=== PATIENT | female | born 1995 | race Two or more races ===

== ENCOUNTER 2025-07-12 09:33 | Emergency (ER) | payer OTHER ==
[~2025-07-12] VITALS: Ht 167.6 cm; Wt 75.0 kg
[2025-07-12 09:55] VITALS: BP 107/76; PULSE 72; RESP 18; TEMP 98.4; O2SAT 100
--- NOTE | 2025-07-12 10:04 | ED.PDOC ---
Back pain HPI HPI Comments A 30 YEAR OLD FE/MALE PRESENTS TO THE ED WITH COMPLAINT OF LOWER BACK PAIN, CONSTIPATION, AND UTI SYMPTOMS. PATIENT STATES SHE HAS BEEN EXPERIENCING LOWER BACK PAIN THAT RADIATES TO HER SUPRAPUBIC REGION AND DOWN HER BILATERAL LEGS FOR THE PAST 2 DAYS. PATIENT REPORTS SHE HAS ALSO BEEN EXPERIENCING CONSTIPATION, URINARY URGENCY, AND URINARY FREQUENCY FOR THE PAST 2 DAYS. PATIENT DENIES SADDLE ANESTHESIA, URINARY INCONTINENCE, BOWEL INCONTINENCE, DYSURIA, HEMATURIA, FLANK PAIN, FEVER, CHILLS, SHORTNESS OF BREATH, CHEST PAIN, ABDOMINAL PAIN, NAUSEA, VOMITING, HEADACHE, OR OTHER COMPLAINTS. NO OTHER SYMPTOMS OR MODIFYING FACTORS AT THIS TIME. PATIENT IS ALERT, ORIENTED X 4, AND HAS STEADY GAIT. Chief Complaint: Back Pain Time Seen by MD: 09:41 Reviewed Notes: Nurses Notes, Medications, Allergies Allergies: Coded Allergies: NO KNOWN ALLERGIES (Unverified , 07/12/25) Home Meds Active Scripts Ibuprofen (Ibuprofen) 800 Mg Tab, 1 TAB PO TID, #30 TAB Prov:KAITLIN AGEE 07/12/25 Lactulose (Lactulose) 10 Gm/15 Ml Ginger, 30 ML PO TID, #300 ML Prov:KAITLIN AGEE 07/12/25 Information Source: Patient Mode of Arrival: Ambulatory Timing: Days Duration: Since onset, Days Location of Back pain: (B) Lumbar Radiates to: Anterior: (B) Buttocks, (B) Calf, (B) Thigh Radiates to: Posterior: (B) Buttocks, (B) Calf, (B) Thigh Radiates to: Medial: (B) Buttocks, (B) Calf, (B) Thigh Radiates to: Lateral: (B) Buttocks, (B) Calf, (B) Thigh Severity: Moderate Prehospital treatment: None Quality: Aching, Cramping Onset: Spontaneous History of: None Modifying Factors: Movement Associated signs and symptoms: None Past Medical History PAST MEDICAL HISTORY: Denies Surgical History: Denies all surgeries REWRITER History: Endometriosis Family History Family History: Reviewed,noncontributory to illness Social History Smoker: Non-Smoker Alcohol: Denies ETOH Use Drugs: Denies Drug Use Lives In: Home Constitutional: denies: chills, diaphoresis, fatigue, fever, malaise, sweats, weakness, others EENTM: denies: blurred vision, double vision, ear bleeding, ear discharge, ear drainage, ear pain, ear ringing, eye pain, eye redness, hearing loss, mouth pain, mouth swelling, nasal discharge, nose bleeding, nose congestion, nose pain, photophobia, tearing, throat pain, throat swelling, voice changes, others Respiratory: denies: cough, hemoptysis, orthopnea, SOB at rest, shortness of breath, SOB with excertion, stridor, wheezing, others Cardiovascular: denies: chest pain, dizzy spells, diaphoresis, Dyspnea on exertion, edema, irregular heart beat, left arm pain, lightheadedness, palpitations, PND, syncope, others Gastrointestinal: reports: constipated; denies: abdomen distended, abdominal pain, blood streaked bowels, diarrhea, dysphagia, difficulty swallowing, hematemesis, melena, nausea, poor appetite, poor fluid intake, rectal bleeding, rectal pain, vomiting, others Genitourinary: reports: frequency, pain (SUPRAPUBIC PAIN), urgency; denies: abnormal vagina bleeding, burning, dyspareunia, dysuria, flank pain, hematuria, incontinence, , vagina discharge, others Neurological: denies: dizziness, fainting, headache, left sided numbness, left sided weakness, numbness, paresthesia, pre-existing deficit, right sided numbness, right sided weakness, seizure, speech problems, tingling, tremors, weakness, others Musculoskeletal: reports: back pain, muscle pain; denies: gout, joint pain, joint swelling, muscle stiffness, neck pain, others Integumetry: denies: bruises, change in color, change in hair/nails, dryness, laceration, lesions, lumps, rash, wounds, others Allergic/Immunocompromised: denies: Difficulty Healing, Frequent Infections, Hives, Itching, others Hematologic/Lymphatic: denies: anemia, blood clots, easy bleeding, easy bruisi ng, swollen glands, others Endocrine: denies: excessive hunger, excessive sweating, excessive thirst, exce ssive urination, flushing, intolerance to cold, intolerance to heat, unexplained weight gain, unexplained weight loss, others Psychiatric: denies: anxiety, bipolar disorder, depression, hopeless, panic disorder, schizophrenia, sleepless, suicidal, others All Other Systems: Reviewed and Negative Physical Exam General Appearance: No Apparent Distress, Normal HEENT: Normal ENT Inspection, PERRL/EOMI, Pharynx Normal, TMs Normal Neck: Full Range of Motion, Non-Tender, Normal, Normal Inspection Respiratory: Chest Non-Tender, Lungs Clear, No Accessory Muscle Use, No Respiratory Distress, Normal Breath Sounds Cardiovascular: No Edema, No JVD, No Murmur, No Gallop, Normal Peripheral Pulses, Regular Rate/Rhythm Breast Exam: Deferred Gastrointestinal: No Organomegaly, Non Tender, No Pulsatile Mass, Normal Bowel Sounds, Soft Genitalia: Deferred Pelvic: Deferred Rectal: Deferred Extremities: No calf tenderness, Normal capillary refill, Normal inspection, Normal range of motion, Non-tender, No pedal edema Musculoskeletal : Location: Bilateral Extremity Location: Back Apperance: Tenderness (AND MUSCLE SPASM ON LOWER BACK, NO BONY TENDERNESS, SWELLING AND DEFORMITY. NO CVA TENDERNESS. 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 Was a procedure done?: No Back Pain Differential Dx Differential Diagnosis: DJD, Musculoskeletal Pain, Strain Other Differential Diagnosis UTI, ACUTE CYSTITIS X-Ray, Labs, Meds, VS Vital Signs Date Time Temp Pulse Resp B/P (MAP) Pulse Ox O2 Delivery O2 Flow Rate FiO2 07/12/25 09:55 98.4 72 18 107/76 (86) 100 98.4 07/12/25 09:55 72 18 100 Room Air 07/12/25 09:35 98.4 72 18 107/76 100 98.4 Lab Test 07/12/25 09:55 Range/Units Urine Color Light-red Yellow Urine Clarity Turbid H Clear Urine pH 6.0 5.0-9.0 Urine Specific [place] 1.014 1.001-1.035 Urine Protein Trace H Negative Urine Ketones Trace Negative Urine Blood 3+ H Negative /uL Urine Nitrite Negative Negative Urine Bilirubin Negative Negative Urine Urobilinogen Normal Negative mg/dL Urine Leukocyte Esterase 1+ Negative /uL Urine RBC 6429 0 - 4 /hpf Urine Microscopic WBC 96 H 0-5 /HPF Urine Squamous Epithelial Cells Few <5 /hpf Urine Bacteria None seen None Seen /hpf Urine Glucose Normal Normal mg/dL Current Medications Medications (Trade) Dose Ordered Sig/Cristiane Route Start Time Stop Time Status Last Admin Ketorolac Tromethamine (Toradol Injection) 60 mg ONCE ONCE IM 07/12/25 10:30 07/12/25 10:31 DC 07/12/25 10:31 ORDERING PHYSICIAN: KAITLIN AGEE PROCEDURE(s): KUB - KUB ABDOMEN SINGLE VIEW REASON: LOW BACK PAIN, DIFFICULTY URINATION ORDER NUMBER(s): [id number], ACCESSION NUMBER(s): [id number] EXAM: XY KUB ABDOMEN SINGLE VIEW INDICATION: LOW BACK PAIN, DIFFICULTY URINATION COMPARISON: None TECHNIQUE: 2 radiographic views of the abdomen. FINDINGS: Nonobstructive bowel gas pattern noted. Moderate volume colonic stool. Post cholecystectomy. There is no definite evidence for pneumoperitoneum. No abnormal calcifications noted. IMPRESSION: Nonobstructive bowel gas pattern noted. ATED BY: BRENT KAYE MD DICTATED DATE/TIME: 07/12/25 103 SIGNED BY: BRENT KAYE MD SIGNED DATE/TIME: 07/12/25 103 CC: X-Ray, Labs, Meds, VS Comment EXTERNAL MEDICAL RECORDS REVIEWED: [NONE] INDEPENDENT HISTORIANS: [NONE] SOCIAL DETERMINANTS OF HEALTH: [NONE] LABS ORDERED: UA REVIEWED AND INTERPRETED RESULTS: BLOOD 3+, LEUKOCYTES 1+ IMAGING ORDERED: XR ABDOMEN (KUB) TREATMENTS ORDERED: TORADOL 60 MG IM PROCEDURES PERFORMED: NONE CRITICAL CARE TIME: NONE I HAVE DISCUSSED THE PATIENT WITH THE ATTENDING PHYSICIAN DR. LYLE AND HE AGREES WITH THE PATIENT'S PLAN OF CARE AND DISPOSITION. BASED ON HISTORY OF PRESENT ILLNESS, AND PHYSICAL EXAM, PATIENT WILL BE DISCHARGED HOME. DISCUSSED PLAN FOR DISCHARGE HOME WITH RX [IBUPROFEN 800 MG AND LACTULOSE]. MEDICATION WARNINGS GIVEN. SHARED DECISION MAKING: DISCUSSED WITH PATIENT THAT THEIR WORKUP WAS NORMAL. PATIENT INSTRUCTED TO FOLLOW UP WITH PRIMARY CARE PROVIDER IN 1-2 DAYS FOR RE- EVALUATION OF SYMPTOMS. PATIENT VERBALIZES UNDERSTANDING TO RETURN TO ED FOR NEW OR WORSENING SYMPTOMS OR IF FOLLOW UP WITH PCP CANNOT BE OBTAINED. PATIENT FEELS COMFORTABLE GOING HOME AT THIS TIME. ALL QUESTIONS ADDRESSED AT TIME OF DISCHARGE. Images Reviewed?: Images reviewed and evaluated by me Time of 1ST Reevaluation: 11:01 Reevaluation 1ST: Improved Patient Education/Counseling: Diagnosis, Treatment, Need For Follow Up Family Education/Counseling: Diagnosis, Treatment, Need For Follow Up Medical Screening: No EMC Exist At This Time SEPSIS Sepsis Screen Date sepsis recognized/suspect: Jul 12, 2025 Time Sepsis recognized/suspect: 09 Recent Procedure: No On Antibiotic Therapy: No Respiratory Rate >20: No Heart Rate >90: No Temp<36 C (96.8 F) or >38.3 C: No SBP <90 or MAP <65 mmHG: No New Acute Mental Status Change: No Is the patient on CPAP, BIPAP,: No Physician Orders Kub Abdomen Single View (07/12/25 09:55) Vital Signs Date Time Temp Pulse Resp B/P (MAP) Pulse Ox O2 Delivery O2 Flow Rate FiO2 07/12/25 09:55 98.4 72 18 107/76 (86) 100 98.4 07/12/25 09:55 72 18 100 Room Air 07/12/25 09:35 98.4 72 18 107/76 100 98.4 Medications Medications Dose Ordered Sig/Cristiane Route Start Time Stop Time Status Last Admin Dose Admin Ketorolac Tromethamine 60 mg ONCE ONCE IM 07/12/25 10:30 07/12/25 10:31 DC 07/12/25 10:31 Departure 1 Departure Time of Disposition: 11:01 Impression: Primary Impression: Acute constipation Additional Impressions: Low back strain Qualified Codes: S39.012A - Strain of muscle, fascia and tendon of lower back, initial encounter UTI (urinary tract infection) Qualified Codes: N30.00 - Acute cystitis without hematuria Disposition: 01 HOME / SELF CARE / HOMELESS Condition: Stable Additional Instructions: FOLLOW-UP WITH PCP IN 1 TO 2 DAYS. TAKE MEDICATIONS PRESCRIBED. RETURN TO ED FOR ANY NEW OR WORSENING SYMPTOMS. e-Prescriptions Ibuprofen (Ibuprofen) 800 Mg Tab 1 TAB PO TID, #30 TAB Prov: KAITLIN AGEE 07/12/25 Lactulose (Lactulose) 10 Gm/15 Ml Ginger 30 ML PO TID, #300 ML Prov: KAITLIN AGEE 07/12/25 Discharged With: Self, Spouse Critical Care Note Critical Care Time?: No Stability Stability form required: No I personally scribed for KAITLIN AGEE ([email or web address]) on 07/12/25 at 10:04. Zulema ctronically submitted by Josef Driver ([email or web address]). I personally scribed for KAITLIN AGEE ([email or web address]) on 07/12/25 at 10:39. Zulema ctronically submitted by Josef Driver ([email or web address]). I personally scribed for KAITLIN AGEE ([email or web address]) on 07/12/25 at 10:54. Zulema ctronically submitted by Josef Driver ([email or web address]). KAITLIN AGEE Jul 12, 2025 10:04
[2025-07-12 10:29] LABS: Urine Protein, UAD TRACE (Negative)
[2025-07-12] MEDS: KETOROLAC TROMETH 60MG/2ML VIAL IM ONE (10:31)
--- NOTE | 2025-07-12 10:34 | DVH ---
EXAM: XY KUB ABDOMEN SINGLE VIEW INDICATION: LOW BACK PAIN, DIFFICULTY URINATION COMPARISON: None TECHNIQUE: 2 radiographic views of the abdomen. FINDINGS: Nonobstructive bowel gas pattern noted. Moderate volume colonic stool. Post cholecystectomy. There is no definite evidence for pneumoperitoneum. No abnormal calcifications noted. IMPRESSION: Nonobstructive bowel gas pattern noted.
[2025-07-12] MEDS ORDERED: IBUP-1456 PO (10:58)
[2025-07-12] MEDS ORDERED: LACT10SO3 PO (10:58)
== END 2025-07-12 11:06 | disposition home or self-care (01) ==
LOC: ER 09:33
DX: S39.012A Strain of muscle, fascia and tendon of lower back, initial encounter (principal); K59.09 Other constipation; N39.0 Urinary tract infection, site not specified; X58.XXXA Exposure to other specified factors, initial encounter; Y93.89 Activity, other specified; Y92.89 Other specified places as the place of occurrence of the external cause; Y99.8 Other external cause status
CPT/HCPCS: 74018; 81001; 96372; 99284; J1885